=== PATIENT | male | born 1980 | race Caucasian/White ===

== ENCOUNTER 2023-07-10 10:03 | Emergency (ER) | payer OTHER, SELFPAY ==
[2023-07-10 10:23] VITALS: BP 159/124; PULSE 67; RESP 20; TEMP 36.6; O2SAT 96
[2023-07-10 10:26] VITALS: BP 172/135
--- NOTE | 2023-07-10 10:38 | ED.URI ---
HPI - URI/Sore Throat General Chief Complaint: Upper Respiratory Infection Stated Complaint: SOB,chest congestion,not able to sleep Time Seen by Provider: 07/10/23 10:39 Source: patient and RN notes reviewed Mode of arrival: ambulatory Limitations: no limitations History of Present Illness HPI Narrative: 43-year-old male presents with concern of for chest congestion, shortness of breath, and difficulty sleeping. He reports he has been sick for about 2 weeks, he was seen at another urgent care on June 30 and given a Z-Mo and a Medrol Dosepak. He reports he finished his Z-Mo, he took the dose pack for about for 5 days and then stopped it because it was causing him trouble sleeping. He has been off steroids for about 6 days. He reports he is not sleeping, he reports not sleeping for the past 4 days. He describes his shortness of breath as well not being able to complete his normal activities without having to stop to catch his breath, activities that he normally completes without issue. He denies chest pain. He denies fever. MD elicited complaint: other (Shortness of breath, chest congestion) Related Data Home Medications Medication Instructions Recorded Confirmed No Home Medications 07/10/23 07/10/23 Allergies Allergy/AdvReac Type Severity Reaction Status Date / Time No Known Allergies Allergy Verified 07/10/23 10:32 Review of Systems Review of Systems: CONSTITUTIONAL: Denies malaise, chills, sweats, or fever. Reports difficulty sleeping EYES: Denies visual changes, redness, or discharge. ENT: Denies rhinorrhea, congestion, sinus pain, otalgia and sore throat. CARDIOVASCULAR: Denies chest pain, palpitations, or edema. RESPIRATORY: Denies cough. Reports chest congestion. Reports dyspnea. GASTROINTESTINAL: Denies abdominal pain, nausea, vomiting, diarrhea SKIN: Denies rash or itching. MUSCULOSKELETAL: Denies myalgia. NEUROLOGIC: Denies headache. All systems reviewed & are unremarkable except as noted in HPI and below PMFSH Comments At time of signature, agree with nursing past medical, surgical, social and family history. There is no relevant family history pertinent to the presenting complaint Exam Narrative: GENERAL: Well-appearing, well-nourished, and in no acute distress. HEAD: Normocephalic EYES: PERRLA, conjunctivae clear ENT: Nares clear. Mucous membranes moist. TM pearly moya with sharp light reflex bilaterally; no tragal tenderness. Oropharynx mildly erythematous with 1 blood blister noted to the oropharynx. Tonsils not enlarged and without exudate, no drooling, no hoarseness, no trismus, uvula midline. NECK: Supple. No lymphadenopathy CHEST: Clear to auscultation, breath sounds equal. No wheezing, rhonchi, rales, or stridor. No respiratory distress, speaks in full sentences. HEART: Irregular rhythm. No murmur heard. SKIN: Warm, dry, no rash. NEURO: Alert and oriented x3. PSYCH: Normal mood and affect Course Course Emergency Course: Patient is aware of, understands and agrees to be transferred to the emergency room. EMS transfer offered, patient prefers for his girlfriend to drive him. Patient agrees to proceed directly to the emergency department. Portions of this record may have been created with voice recognition software Level of Care: Express Care Visit Vital Signs Vital signs: Vital Signs Temperature 97.9 F 07/10/23 10:23 Pulse Rate 67 07/10/23 10:23 Respiratory Rate 20 07/10/23 10:23 Blood Pressure 159/124 H 07/10/23 10:23 Pulse Oximetry 96 07/10/23 10:23 Oxygen Delivery Room Air 07/10/23 10:23 Temperature 97.9 F 07/10/23 10:23 Pulse Rate 67 07/10/23 10:23 Respiratory Rate 20 07/10/23 10:23 Blood Pressure 172/135 H 07/10/23 10:26 Pulse Oximetry 96 07/10/23 10:23 Oxygen Delivery Room Air 07/10/23 10:23 Reviewed. Transfer Transfered to: [facility]: Other (Private vehicle) Transfer rationale: AFib with RVR Ac
--- NOTE | 2023-07-10 10:47 | ECG_ITS ---
Measurements Intervals [place] Rate: 171 P: RI: 0 QRS: 42 QRSD: 90 T: 63 QT: 276 QTc: 467 Interpretive Statements ATRIAL FIBRILLATION WITH RAPID VENTRICULAR RESPONSE NONSPECIFIC T-WAVE ABNORMALITY ABNORMAL RHYTHM ECG COMPARED TO ECG EARLIER TODAY THERE IS NO DIFFERENCE Electronically Signed On 07-10-2023 19:13:47 BRACER by Cristofer Gibbs M.D.
== END 2023-07-10 11:03 | disposition short-term general hospital (02) ==
PROVIDERS: Emergency Provider Nurse Practitioner
DX: I48.91 Unspecified atrial fibrillation (principal); E78.00 Pure hypercholesterolemia, unspecified; I10 Essential (primary) hypertension
CPT/HCPCS: 93005; 99213; G0463

== ENCOUNTER 2023-07-10 11:21 | Inpatient (IN) | payer OTHER, SELFPAY ==
[2023-07-10] VITALS (22 sets, daily range): BP systolic 111–162; BP diastolic 69–137; PULSE 94–173; RESP 13–25; TEMP 36.4–36.7; O2SAT 94–98; BMI 46.7
--- NOTE | ~2023-07-10 | XR_ITS ---
EXAMINATION: XR chest 1V portable DATE: 07/10/2023 12:21 INDICATION: Shortness of breath and cardiac arrhythmia TECHNIQUE: frontal view of the chest was obtained. COMPARISON: None FINDINGS: Cardiomegaly. Prominent perihilar predominant interstitial and airspace opacities with bat wing confi guration most consistent with moderate pulmonary edema. No pleural effusion or pneumothorax. IMPRESSION: 1. Likely congestive heart failure with mild cardiomegaly and moderate perihilar predominant pulmonar y edema. Differential would include pneumonia in the appropriate clinical setting. Reviewed, dictated and finalized at location A. INTMENT SPECIALIST IMPRESSION: 1. Likely congestive heart failure with mild cardiomegaly and moderate perihila r predominant pulmonary edema. Differential would include pneumonia in the appr opriate clinical setting.
--- NOTE | 2023-07-10 11:28 | ECG_ITS ---
Measurements Intervals [place] Rate: 161 P: [place]: 0 QRS: 41 QRSD: 84 T: 78 QT: 269 QTc: 441 Interpretive Statements ATRIAL FIBRILLATION WITH RAPID VENTRICULAR RESPONSE NONSPECIFIC T-WAVE ABNORMALITY ABNORMAL RHYTHM ECG NO PREVIOUS ECG AVAILABLE FOR COMPARISON Electronically Signed On 07-10-2023 19:13:25 MEDICAL TECHNOLOGIST HEMATOLOGY by Cristofer Gibbs M.D.
[2023-07-10] MEDS: ASPIRIN 81 MG CHEWABLE TABLET 324 MG PO (11:34)
--- NOTE | 2023-07-10 11:36 | ED.ARRPALP ---
HPI - Arrhythmia/Palpitations General Chief Complaint: Arrhythmia/Palpitations Stated Complaint: a fib with rvr/sob Time Seen by Provider: 07/10/23 11:28 History of Present Illness HPI narrative: Patient is a 43-year-old male who presents to the emergency department this morning complaining of shortness of breath. Patient states that he has been having symptoms of an upper respiratory infection with shortness of breath and cough for the past week, he finished a course of antibiotics and steroids which initially improved his symptoms but as soon as he finished the antibiotic and steroids, patient noticed that his shortness of breath has returned. Patient went to an urgent care today and was sent to our facility due to an elevated heart rate. Patient states that he has not noticed that his heart rate has been racing, however, he has been feeling more congested and coughing and having shortness of breath which is what brought him in to the urgent care in the 1st place. He denies any history of cardiovascular disease or arrhythmia, states that his only past medical history is hypertension, however, he took himself off of his blood pressure medications since it was given him side effects that he did not like including seeing floaters. 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 Patient is currently denying chest pain at this time. He denies any nausea, vomiting, abdominal pain, dysuria, hematuria, constipation, diarrhea, melena, hematochezia, fevers or chills. Patient also denies any headache, dizziness, lightheadedness, focal weakness, numbness and tingling. There are no other modifying, alleviating, or precipitating factors at this time. Related Data Home Medications Medication Instructions Recorded Confirmed No Home Medications 07/10/23 07/10/23 Allergies Allergy/AdvReac Type Severity Reaction Status Date / Time No Known Allergies Allergy Verified 07/10/23 10:32 Review of Systems Review of Systems: All systems are reviewed and are negative unless stated otherwise in the HPI. [facility] Past Medical History Medical History (Updated 07/10/23 @ 17:35 by Amber Hopper MD) HTN (hypertension) Social History Social History Alcohol intake: current Drinks per week: 9 Substance use type: marijuana Other substance usage details: smokes 4-5 times a day Do You Feel Safe in your Home?: Yes Lack of Transportation: No Lack of Food: Never True Current Housing: I Have Housing Concerned About Future Housing: No Difficulty Paying Gas/Electric Bills: No Difficulty Paying for Meds: No Currently Unemployed: No Education: Don't Know Difficulty w/ Childcare or Family Care: No Spiritual care concerns: No Comments Patient admits to past medical history of hypertension, however, he states that he took himself off of his blood pressure medication because he did not like how it made him feel. Denies any significant surgical or family history. Patient denies any tobacco use, admits to marijuana use, denies any alcohol abuse. Exam Narrative: General: Alert, awake, afebrile, in no acute distress. HEENT: PERRL, no rhinorrhea, no post nasal drip, oropharynx clear. Neck: Trachea midline, no JVD, no lymphadenopathy. Cardiovascular: Tachycardic with an irregular rhythm, no murmurs, rubs or gallops, no peripheral edema. Respiratory: Clear to auscultation bilaterally, no tachypnea, no wheezing, no rhonchi, no rubs, no respiratory distress. Abdomen: Soft, nontender, nondistended, no rebound, no guarding, no peritoneal signs. Musculoskeletal: No joint swelling or deformity, normal muscle tone. Skin: No rashes or petechia, no signs of infection. Psychiatric: Alert and oriented, normal behavior and judgment for situation. Neuro
[2023-07-10 11:53] LABS: Basophils Absolute Auto 0.1 K/mm3 (0.0-0.1); Basophils Percent Auto 0.5 % (0.2-1.2); Eosinophils Absolute Auto 0.1 K/mm3 (0-0.3); Eosinophils Percent Auto 1.3 % (0-4.4); Hematocrit 44.6 % (42.0-52.0); Hemoglobin 14.2 g/dL (14.0-18.0); Immature Granulocyte Absolute 0.04 K/mm3 (0.00-0.031); Immature Granulocyte Percent A 0.4 % (0-0.5); Lymphocytes Absolute Auto 2.15 K/mm3 (0.9-3.2); Lymphocytes Percent Auto 20.2 % (18.3-44.2); Mean Corpuscular HGB Conc 31.8 g/dl (32-36); Mean Corpuscular Hemoglobin 30.3 pg (26-34); Mean Corpuscular Volume 95.3 fl (80-100); Mean Platelet Volume 8.6 fl (7.4-10.4); Monocytes Absolute Auto 0.8 K/mm3 (0.1-0.6); Monocytes Percent Auto 7.6 % (2.6-8.5); Neutrophils Absolute Auto 7.4 K/mm3 (1.3-6.7); Platelet Count Result 426 k/mm3 (150-375); Red Blood Count 4.68 M/mm3 (4.6-6.20); Red Cell Distribution Width 13.8 % (11.5-14.5); White Blood Count 10.6 K/mm3 (4.5-10.0)
[2023-07-10 12:02] LABS: Alanine Aminotransferase 74 U/L (6-50); Albumin Level 3.9 g/dL (3.5-5.1); Alkaline Phosphatase 45 U/L (38-126); Anion Gap 5 mmol/L (8-16); Aspartate Amino Transferase 42 U/L (17-59); Bilirubin,Total 0.6 mg/dL (0.2-1.3); Blood Urea Nitrogen 21 mg/dL (9-20); Calcium 9.1 mg/dL (8.4-10.2); Carbon Dioxide 28 mmol/L (22-30); Chloride 105 mmol/L (98-107); Estimated CRCL calculation 113 ml/min; Estimated Glomerular Filt Rate > 60; Glucose 114 mg/dL (65-110); Lipase 109 U/L (23-300); Sodium 138 mmol/L (137-145)
[2023-07-10 12:04] LABS: INR 1.1; Partial Thromboplastin Time 28.5 SECONDS (22.3-36.8); Prothrombin Time 14.5 Seconds (11.1-14.7)
[2023-07-10] MEDS: SODIUM CHLORIDE 0.9% IV 1,000 ML 999 ML IV CONT (12:04)
[2023-07-10] MEDS: dilTIAZem HCl INJ 25 MG/5 ML VIAL 10 MG IV PUSH (12:05)
[2023-07-10] MEDS: dilTIAZem 100 MG/100 ML 100 MG/100 ML BAG IV CONT (12:06)
[2023-07-10 12:13] LABS: Troponin I 0.034 ng/mL (0.000-0.034)
[2023-07-10 12:28] LABS: Influenza A QL RT-PCR Negative (Negative); Influenza B QL RT-PCR Negative (Negative); RSV RNA, RT-PCR Negative (Negative); SARS-CoV-2 RNA PCR Negative (Negative)
[2023-07-10 12:43] LABS: Appearance Urine Clear (Clear); Bilirubin Urine Negative (Negative); Blood Urine Negative (Negative); Color Urine Yellow (Yellow); Glucose Urine UA Negative (Negative); Ketones Urine Negative (Negative); Leukocyte Esterase Ur Negative LEU/UL (Negative); Nitrate Urine Negative (Negative); Protein Urine Negative (Negative); Specific Grav Ur 1.022 (1.001-1.035); Urobilinogen Urine 0.2 mg/dL (<2.0)
[2023-07-10] MEDS: dilTIAZem HCl INJ 25 MG/5 ML VIAL 20 MG IV PUSH ×2 (12:48→14:44)
[2023-07-10 12:56] LABS: Add Urine Microscopic? NO
[2023-07-10 13:29] LABS: Magnesium 2.4 mg/dL (1.6-2.3)
--- NOTE | 2023-07-10 13:32 | PM.IMHP ---
H&P: HPI History of Present Illness Date/Time: 07/10/23 13:32 Chief Complaint: SOB, Chest Congestion Narrative: 43 y/o M presents here with shortness of breath and chest congestion with PMH of HTN. Patient presents here with SOB, tachycardia, chest congestion, and insomnia that has been ongoing. Patient first noted SOB and productive cough for 1-2 days prior to being seen on 06/29. Patient was negative for COVID and Flu - no CXR done, dx with URI. Given atb x5 days and steroid x7 days, completed atb but has not completed the steroid course. Patient self-discontinued the steroid due to insomnia - described being jolted awake every hour. Patient's SOB slightly improved initially, but chest congestion did not improve despite Robitussin. SOB then worsened again. Girlfriend noted patient was gasping and very short of breath over the last 2-3 days. Was requiring rest/bracing himself against the wall to catch his breath. Exertion worsened SOB, rest would alleviate it but it never completely resolved. No chest pain, chest tightness, dizziness, jaw pain, or fatigue. +diaphoresis and clamminess not associated with exertion, intermittent without precipitating factors. +Palpitations. Afebrile and no body aches. Patient has HTN but not currently on medications. Patient states that 2 years ago he was exchanged to a different HTN medications and he started seeing tracers . Does not remember names of medications. 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 Initial VS at presentation: 98.0 F, HR 67-173, RR 20, 158/137, and 96% on RA. ED workup showed no leukocytosis, no anemia, creatinine 1.1, magnesium 2.4, ALT 74, BNP 4 270, troponin initially 0.034, and viral PCR negative. CXR: Cardiomegaly. Prominent perihilar predominant interstitial and airspace opacities with bat wing configuration most consistent with moderate pulmonary edema. No pleural effusion or pneumothorax. Review of Systems Review of Systems: All systems reviewed & are unremarkable except as noted in HPI and below PMFSH Past Medical History Medical History (Updated 07/10/23 @ 13:58 by Meaghan Rojas, AIRCRAFT SERVICER) HTN (hypertension) Meds Home Medications and Allergies Home Medications Medication Instructions Recorded Confirmed Type No Home Medications 07/10/23 07/10/23 History Allergies Allergy/AdvReac Type Severity Reaction Status Date / Time No Known Allergies Allergy Verified 07/10/23 10:32 Vital Signs Vital Signs - 24 hr 07/10/23 11:36 07/10/23 11:48 07/10/23 11:48 Temperature 98.0 F Pulse Rate 173 H 162 H 170 H Respiratory Rate 20 17 Blood Pressure 158/137 H 155/122 H Pulse Oximetry 96 95 Oxygen Delivery Room Air 07/10/23 12:06 07/10/23 12:48 07/10/23 12:55 Temperature Pulse Rate 169 H 157 H 124 H Respiratory Rate 13 Blood Pressure 137/102 H 150/80 H Pulse Oximetry 96 95 Oxygen Delivery 07/10/23 13:00 Temperature Pulse Rate 136 H Respiratory Rate 13 Blood Pressure Pulse Oximetry 95 Oxygen Delivery Exam Const: General: comfortable and no acute distress Other: , male, nontoxic appearance, obese body habitus. HENMT: Face/Nose/Sinus: Normal nares present Mouth: Yes moist mucous membranes Eyes: General: appearance normal, both eyes and all related structures Sclera: sclerae normal Pupils: Equal, round and reactive pupils present EOM: EOMs intact bilaterally Resp: Effort & Inspection: normal respiratory effort Auscultation: rhonchi Other: L lung base. Cardio: Rate: tachycardic Rhythm: abnormal rhythm Other: No murmur. GI: Other: rounded, non-firm, and non-tender Skin: General skin exam: normal color Other: satellite dispersion rash across upper chest. Neuro: General: gait normal Speech: normal speech Motor exam (neuro): 5/5 motor strength present throughout Sensory Exam: normal sensation Other: A/Ox4 Extrem: General: norm
[2023-07-10 13:42] LABS: NT Pro B Type Natriuretic Pept 4270 pg/mL (19.9-100)
[2023-07-10 13:47] LABS: Lactic Acid Reflex 1.1 mmol/L (0.7-2.0)
[2023-07-10] MEDS: AZITHROMYCIN 500 MG/NS 250 ML 500 MG/250 ML BAG 250 MG IVPB (14:51)
--- NOTE | 2023-07-10 15:43 | ECG_ITS ---
Measurements Intervals [place] Rate: 114 P: [place]: 0 QRS: 47 QRSD: 93 T: 63 QT: 336 QTc: 464 Interpretive Statements ATRIAL FIBRILLATION WITH RAPID VENTRICULAR RESPONSE ABNORMAL ECG COMPARED TO ECG 07/10/2023 11:32:09 NO SIGNIFICANT CHANGES Electronically Signed On 07-12-2023 18:18:35 FEDERAL AGENT by Ronaldo Mtz M.D.
[2023-07-10 16:30] LABS: Troponin I 0.027 ng/mL (0.000-0.034)
[2023-07-10] MEDS: FUROSEMIDE INJ 40 MG/4 ML VIAL IV PUSH (17:10)
[2023-07-10] MEDS: LACTATED RINGERS 500 ML 75 ML IV CONT (17:10)
--- NOTE | 2023-07-10 17:22 | ADMGEN ---
This patient, Salvador Nolan, was admitted to IMU Room 205-01. Patient/family oriented to hospital policies and general routines including ID bracelet, bed and alarms, visiting hours, pain management, procedures, bathroom and other care routines, personal items, smoking policy, room service/diet, and visiting hours. Information on how to activate the Rapid Response Team has been discussed. Patient/Family are encouraged to report perceived risks to care and to ask questions if they do not understand what they are told or what they should do.
[2023-07-10 17:54] LABS: Troponin I 0.023 ng/mL (0.000-0.034)
--- NOTE | 2023-07-10 17:54 | PM.CNCAR ---
Assessment and Plan Assessment and plan (1) Atrial fibrillation with rapid ventricular response: Code(s): I48.91 - Unspecified atrial fibrillation Status: Acute Plan This is a young 43-year-old man morbid obesity and untreated hypertension he is is also reporting symptoms that are classical for sleep apnea. This has not been reported to physician or evaluated. He recently has had symptoms of an upper respiratory illness. He is receiving intravenous diltiazem with some improvement in heart rate but he is still moderately tachycardic and hypertensive. I am going to add metoprolol to his regimen as this would be my rate control agent of preference in this situation. I will start systemic anticoagulation with apixaban recognizing that his chads score is low but if we are anticipating that the likelihood of trying to cardiovert this young man I would like him to be anticoagulated at least for the time being. Echocardiogram will of course be done I will order an ApneaLink for tonight and follow with you while he is in the hospital. If we can achieve good rate control and anticoagulation which generally anticipate attempting cardioversion after suitable anticoagulation for 4-6 weeks. Thank you for this interesting consultation Cristofer Gibbs MD [facility] History of Present Illness History of Present Illness Consult date/time: 07/10/23 17:54 Reason For Visit: A FIB RVR,Pneumonia vs Pulmonary Edema Narrative: This is a very pleasant 43-year-old man I am seeing at the request of the hospitalist his evening for assistance with the management of atrial fibrillation. The patient is unknown to me and I believe unknown to physicians here at [facility] prior to this admission. He says he had been feeling poorly for a couple of weeks and was concerned that he have a viral respiratory illness. He describes having gone to an urgent care facility elsewhere and received some antibiotics and decongestants for the last week or so. He states his breathing felt somewhat better but he was still congested and not feeling well and so he went to the [place] urgent care center earlier today. He was found to be quite a quite tachycardic cardiac and in atrial fib with RVR. He was sent to the emergency room for evaluation where he was placed on IV diltiazem and admitted to the IMU. He appears to be quite comfortable at this time and seems to be in no distress at all. He is visiting with his in and due to see him. He is interestingly not aware of tachycardia or palpitations as part of this presentation. He has a history of hypertension which is untreated as he has not been on any medication for least a few years. He is previous primary care physician had him on medication which she self discontinued. He does not have any history of diabetes or dyslipidemia. He is morbidly obese with a BMI of 47. His provides a very typical history of symptoms and observations of sleep apnea. She states this is been going on for at least a few years. He has 5 mg of IV diltiazem running at this time and has heart rate of about 120-130. Review of Systems Constitutional: Constitutional: Reports lethargy Eyes: Eyes: Reports no additional eye complaints ENT: Reports system reviewed and no additional complaints, except as documented Cardiovascular: Cardiovascular: Reports no additional cardiovascular complaints Respiratory: Respiratory: Reports cough and Reports dyspnea Gastrointestinal: Gastrointestinal: Reports no additional gastrointestinal complaints Musculoskeletal: Musculoskeletal: Reports no additional musculoskeletal complaints Integumentary/Breasts: Skin/Breast: Reports system reviewed and no additional complaints, except as docu Neurologic: Reports system reviewed and no additional complaints, except as documented Endocrine: Endocrine: Reports no additional endocrine complaints Hematologic/Lymphatic: Hematologic/Lymphatic: Reports
[2023-07-10] MEDS: METOPROLOL SUCCINATE EXT REL 100 MG TABCR PO (18:38)
[2023-07-10] MEDS: dilTIAZem 100 MG/100 ML 100 MG/100 ML BAG 10 MG IV CONT ×2 (19:27→22:03)
[2023-07-10] MEDS: APIXABAN 5 MG TABLET PO (20:55)
[2023-07-11] VITALS (20 sets, daily range): BP systolic 127–149; BP diastolic 92–99; PULSE 84–108; RESP 18–25; TEMP 36.2–36.8; O2SAT 90–97
[2023-07-11] MEDS: METOPROLOL SUCCINATE EXT REL 100 MG TABCR PO (09:01)
[2023-07-11] MEDS: dilTIAZem 100 MG/100 ML 100 MG/100 ML BAG 10 MG IV CONT (09:01)
[2023-07-11] MEDS: APIXABAN 5 MG TABLET PO ×2 (09:02→20:09)
--- NOTE | 2023-07-11 10:52 | PM.PNCARD ---
Progress Note: A&P Assessment and Plan (1) Atrial fibrillation with rapid ventricular response: Code(s): I48.91 - Unspecified atrial fibrillation Status: Acute Plan 43-year-old man with: Atrial fib with RVR felt to be of recent onset possibly 2-3 weeks prior to admission. Heart rate is coming under good control medically and he is anticoagulated. Start down titrating his IV diltiazem hopefully the oral metoprolol will provide adequate rate control and when his heart rate is controlled with oral medication and assuming he is hemodynamically stable he can be discharged with plans to attempt cardioversion as an outpatient. Apnea link was done last night results of that are pending. He reports classical symptoms of obstructive sleep apnea. Echocardiogram will be done tomorrow for structural cardiac evaluation. Cristofer Gibbs MD [facility] Subjective Date/time seen: Date of service: 07/11/23 10:52 Interval history: Follow-up visit in this 43-year-old man with: Atrial fibrillation with RVR of uncertain duration. Patient's heart rate is well controlled on IV diltiazem oral metoprolol started yesterday. Apixaban in place for systemic anticoagulation. He feels well this more and offers no symptoms or complaints. Plans reviewed again for initial rate control and subsequent attempts at restoring sinus rhythm once he has been anticoagulated for 4-6 weeks. Exam Const: General: comfortable and no acute distress HENMT: Mouth: Yes moist mucous membranes Eyes: Sclera: sclerae normal Neck: Neck: supple and no JVD Resp: Effort & Inspection: normal respiratory effort Auscultation: clear to auscultation bilaterally Other: Breath sounds distant but essentially clear Cardio: Rate: regular rate Rhythm: abnormal rhythm irregularly irregular GI: GI Palp: Yes Soft to palpation Auscultation: normal bowel sounds Skin: General skin exam: normal color Neuro: Other: Alert and oriented x3 Objective Data Vital Signs Vital Signs: Vital Signs - 24 hr 07/10/23 11:36 07/10/23 11:48 07/10/23 11:48 Temperature 36.7 C Pulse Rate 173 H 162 H 170 H Respiratory Rate 20 17 Blood Pressure 158/137 H 155/122 H Pulse Oximetry 96 95 Oxygen Delivery Room Air 07/10/23 12:06 07/10/23 13:49 07/10/23 14:12 Temperature Pulse Rate 169 H 135 H 138 H Respiratory Rate 20 Blood Pressure 137/102 H 158/110 H Pulse Oximetry 95 Oxygen Delivery 07/10/23 12:48 07/10/23 12:55 07/10/23 13:00 Temperature Pulse Rate 157 H 124 H 136 H Respiratory Rate 13 13 Blood Pressure 150/80 H Pulse Oximetry 96 95 95 Oxygen Delivery 07/10/23 13:37 07/10/23 13:45 07/10/23 14:32 Temperature Pulse Rate 137 H 135 H 134 H Respiratory Rate 22 H 22 H 23 H Blood Pressure Pulse Oximetry 96 94 95 Oxygen Delivery 07/10/23 14:45 07/10/23 14:46 07/10/23 15:16 Temperature Pulse Rate 144 H 138 H 118 H Respiratory Rate 23 H 22 H 25 H Blood Pressure 162/118 H 133/106 H Pulse Oximetry 98 Oxygen Delivery 07/10/23 18:38 07/10/23 19:27 07/10/23 18:00 Temperature Pulse Rate 123 H 123 H 104 H Respiratory Rate Blood Pressure Pulse Oximetry Oxygen Delivery 07/10/23 20:00 07/10/23 22:03 07/10/23 21:00 Temperature 36.4 C L Pulse Rate 108 H 101 H Respiratory Rate 25 H Blood Pressure 111/69 Pulse Oximetry 95 Oxygen Delivery Room Air 07/10/23 23:01 07/10/23 23:00 07/10/23 20:00 Temperature 36.6 C Pulse Rate 102 H 94 Respiratory Rate 25 H Blood Pressure 135/99 H Pulse Oximetry 95 Oxygen Delivery Room Air 07/10/23 22:00 07/11/23 00:00 07/11/23 02:00 Temperature Pulse Rate 103 H 84 96 Respiratory Rate Blood Pressure Pulse Oximetry Oxygen Delivery 07/11/23 00:00 07/11/23 03:51 07/11/23 03:54 Temperature 36.7 C Pulse Rate 95 Respiratory Rate 25 H Blood Pressure 135/99 H 134/99 H Pulse Oximetry 96 O
--- NOTE | 2023-07-11 14:25 | PM.IMPN ---
Progress Note: A&P Assessment and Plan (1) Atrial fibrillation with rapid ventricular response: Code(s): I48.91 - Unspecified atrial fibrillation Status: Acute Assessment and Plan: EKG showing A-fib RVR - Troponin: 0.034 -> 0.027, 0.023 - CXR: Likely congestive heart failure with mild cardiomegaly and moderate perihilar predominant pulmonary edema. - BNP: 4270 - echo ordered. - cardiology consulted. - tele monitoring - diltiazem gtt titrate down - pt transitioned to metoprolol succinate 100 mg daily (2) Pneumonia: Code(s): J18.9 - Pneumonia, unspecified organism Status: Acute Assessment and Plan: CXR: Likely congestive heart failure with mild cardiomegaly and moderate perihilar predominant pulmonary edema. Differential would include pneumonia in the appropriate clinical setting. - given complaint of chest congestion, treatment for CAP started - Azithromycin and Ceftriaxone - viral PCR negative - supportive care - monitor vitals, currently afebrile (3) Pulmonary edema: Code(s): J81.1 - Chronic pulmonary edema Status: Acute Assessment and Plan: CXR: Likely congestive heart failure with mild cardiomegaly and moderate perihilar predominant pulmonary edema. Differential would include pneumonia in the appropriate clinical setting. - BNP: 4270 - Lasix 40 IVP x1 - monitor I&Os - daily weights - echo ordered Subjective Date/time seen: 07/11/23 14:25 Interval history: Patient doing well today and states he feels better today. Patient States that he needs to be discharged by tomorrow due to work conflicts. He denies any chest pain, heart palpitations, sensation of racing heart, lower extremity edema, nausea vomiting. He was experiencing some shortness of breath but that has since improved. Will plan to get echocardiogram tomorrow. Heart rate improved today. Exam Narrative: GENERAL: Comfortable, no acute distress HENMT: moist mucous membranes EYES: EOM intact b/l NECK: no lymphadenopathy RESPIRATORY: clear to auscultation CARDIO: Irregular rhythm, rate controlled GI: soft, nontender, bowel sounds present SKIN: no rashes EXTREMITIES: no edema, redness or tenderness Objective Data Vital Signs Vital Signs: Vital Signs - 24 hr 07/10/23 14:32 07/10/23 14:45 07/10/23 14:46 Temperature Pulse Rate 134 H 144 H 138 H Respiratory Rate 23 H 23 H 22 H Blood Pressure 162/118 H Pulse Oximetry 95 Oxygen Delivery 07/10/23 15:16 07/10/23 18:38 07/10/23 19:27 Temperature Pulse Rate 118 H 123 H 123 H Respiratory Rate 25 H Blood Pressure 133/106 H Pulse Oximetry 98 Oxygen Delivery 07/10/23 18:00 07/10/23 20:00 07/10/23 22:03 Temperature 97.5 F L Pulse Rate 104 H 108 H 101 H Respiratory Rate 25 H Blood Pressure 111/69 Pulse Oximetry 95 Oxygen Delivery 07/10/23 21:00 07/10/23 23:01 07/10/23 23:00 Temperature 97.9 F Pulse Rate 102 H Respiratory Rate 25 H Blood Pressure 135/99 H Pulse Oximetry 95 Oxygen Delivery Room Air Room Air 07/10/23 20:00 07/10/23 22:00 07/11/23 00:00 Temperature Pulse Rate 94 103 H 84 Respiratory Rate Blood Pressure Pulse Oximetry Oxygen Delivery 07/11/23 02:00 07/11/23 00:00 07/11/23 03:51 Temperature Pulse Rate 96 Respiratory Rate Blood Pressure 135/99 H Pulse Oximetry Oxygen Delivery Room Air 07/11/23 03:54 07/10/23 23:00 07/11/23 04:00 Temperature 98.1 F Pulse Rate 95 106 H Respiratory Rate 25 H Blood Pressure 134/99 H Pulse Oximetry 96 96 Oxygen Delivery Room Air 07/11/23 06:00 07/11/23 07:55 07/11/23 08:03 Temperature 97.7 F Pulse Rate 103 H 104 H 107 H Respiratory Rate 19 Blood Pressure 132/98 H Pulse Oximetry 94 Oxygen Delivery 07/11/23 09:01 07/11/23 08:00 07/11/23 10:00 Temperature Pulse Rate 102 H 97 96 Respiratory Rate Blood Pressure Pulse Oximet
[2023-07-11] MEDS: AZITHROMYCIN 250 MG TABLET 500 MG PO (16:04)
[2023-07-12] VITALS (21 sets, daily range): BP systolic 117–155; BP diastolic 76–102; PULSE 59–142; RESP 18–20; TEMP 35.9–37; O2SAT 95–97
--- NOTE | 2023-07-12 | ECHO_ITS ---
Patient Info Name: Salvador Nolan Age: 43 years : 1980 Gender: Male Ht: 70 in Wt: 327 lbs BSA: 2.78 m2 HR: 139 bpm BP: 136 / 76 mmHg Heart Rhythm: Atrial Fibrillation Technical Quality: Fair Exam Date: 07/12/2023 8:16 AM Exam Location: Echo Lab Patient Status: Inpatient Admit Date: 07/11/2023 Staff Ordering Physician: Meaghan Rojas APRN Horse Buyer: Kaylyn Bro RDCS Attending Provider: Sunil Amaya MD Referring Physician: Bob RICHARD; Exam Type: CA echo dop color flow w con Study Info Indications - NEW AFIB Complete two-dimensional, color flow and Doppler transthoracic echocardiogram is performed with contrast to opacify the left ventricle and to improve the deliniation of the left ventricle endocardial borders. Contrast/Agitated Saline Contrast/Ag. Saline: Definity Amount: 3.00 ml Administered By: Kaylyn Bro RDCS Existing IV Access: Yes IV Access Condition: patent with no signs of infiltration Summary 1. Technically difficult study with limited views. Definity contrast administered. 2. Left ventricular chamber dimension is normal. 3. Left ventricular systolic function is normal, estimated at 55-60%. 4. There is no increased left ventricular wall thickness. 5. The left ventricular diastolic function is indeterminate. 6. Left atrial chamber dimension is mildly enlarged. 7. Right atrial chamber dimension is severely enlarged. 8. There is trace tricuspid valve regurgitation. 9. Mild pulmonary hypertension, estimated pulmonary arterial systolic pressure is 38 mmHg. 10. Dilated inferior vena cava with >50% collapse upon inspiration consistent with elevated right atrial pressure, 10 mmHg. Left Ventricle Left ventricular chamber dimension is normal. Left ventricular systolic function is normal, estimated at 55-60%. There is no increased left ventricular wall thickness. The left ventricular diastolic function is indeterminate. Technically difficult study with limited views. Definity contrast administered. Right Ventricle Right ventricular chamber dimension is normal. Right ventricular systolic function is normal. Left Atria Left atrial chamber dimension is mildly enlarged. Right Atria Right atrial chamber dimension is severely enlarged. Aortic Valve The aortic valve is trileaflet. There is no aortic valve stenosis. There is no aortic valve regurgitation. Pulmonic Valve The pulmonic valve is not well visualized. Mitral Valve The mitral valve has normal leaflets. There is mild mitral valve regurgitation. Tricuspid Valve The tricuspid valve leaflets are normal. There is trace tricuspid valve regurgitation. Mild pulmonary hypertension, estimated pulmonary arterial systolic pressure is 38 mmHg. Pericardium/Pleural The pericardium appears normal. There is no pericardial effusion. Inferior Vena Cava Dilated inferior vena cava with >50% collapse upon inspiration consistent with elevated right atrial pressure, 10 mmHg. Aorta The aortic root size at the sinus of Valsalva is normal. Left Ventricular Outflow Tract Name Value Normal LVOT 2D LVOT Diameter 2.04 cm LVOT Doppler LVOT Peak Gradient
[2023-07-12] MEDS: dilTIAZem 100 MG/100 ML 100 MG/100 ML BAG IV CONT (00:50)
[2023-07-12 04:42] LABS: Hemoglobin 13.4 g/dL (14.0-18.0); Mean Corpuscular HGB Conc 31.9 g/dl (32-36); Mean Corpuscular Hemoglobin 30.3 pg (26-34); Mean Platelet Volume 8.7 fl (7.4-10.4); Platelet Count Result 388 k/mm3 (150-375); Red Blood Count 4.42 M/mm3 (4.6-6.20); Red Cell Distribution Width 13.5 % (11.5-14.5); White Blood Count 10.6 K/mm3 (4.5-10.0)
[2023-07-12 05:13] LABS: Anion Gap 5 mmol/L (8-16); Blood Urea Nitrogen 14 mg/dL (9-20); Calcium 8.5 mg/dL (8.4-10.2); Carbon Dioxide 26 mmol/L (22-30); Chloride 105 mmol/L (98-107); Estimated CRCL calculation 136 ml/min; Estimated Glomerular Filt Rate > 60; Glucose 99 mg/dL (65-110); Potassium 3.8 mmol/L (3.4-5.0); Sodium 136 mmol/L (137-145)
[2023-07-12] MEDS: PERFLUTREN LIPID MICROSPHERES 1.5 ML VIAL DILUTED TO 10 ML TOTAL VOLUME IV PUSH (08:46)
--- NOTE | 2023-07-12 09:01 | PC.NURSE ---
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
[2023-07-12] MEDS: METOPROLOL SUCCINATE EXT REL 100 MG TABCR PO (09:34)
[2023-07-12] MEDS: APIXABAN 5 MG TABLET PO ×2 (09:35→20:23)
[2023-07-12] MEDS: AZITHROMYCIN 250 MG TABLET 500 MG PO (11:23)
[2023-07-12] MEDS: dilTIAZem HCL 60 MG TABLET PO ×2 (11:23→19:38)
[2023-07-12] MEDS: METOPROLOL SUCCINATE EXT REL 50 MG TABCR PO (11:23)
--- NOTE | 2023-07-12 11:40 | IVDEFINITY ---
Prior to administration of IV Definity the patient was educated on the risks and benefits of the imaging enhancing agent including potential adverse side effects. The patient verbalized understanding. Allergies were verified. No exclusion criteria were identified and at least one of the following inclusion criteria were met: 1) physician request, 2) patient technically difficult to image (per the [place] [employer]ocardi[employer] guidelines of two or more segments not discernable within the apical view), or 3) questionable left ventricular function. ?
--- NOTE | 2023-07-12 14:24 | PM.IMPN ---
Progress Note: A&P Assessment and Plan (1) Atrial fibrillation with rapid ventricular response: Code(s): I48.91 - Unspecified atrial fibrillation Status: Acute Assessment and Plan: EKG showing A-fib RVR - Troponin: 0.034, 0.027, 0.023 - CXR: Likely congestive heart failure with mild cardiomegaly and moderate perihilar predominant pulmonary edema. - BNP: 4270 - echo pending. - cardiology consulted. - tele monitoring - diltiazem gtt titrate down - pt transitioned to metoprolol succinate 100 mg daily - 07/12 patient not yet converted. Await further recommendations from cardiology (2) Pneumonia: Code(s): J18.9 - Pneumonia, unspecified organism Status: Acute Assessment and Plan: CXR: Likely congestive heart failure with mild cardiomegaly and moderate perihilar predominant pulmonary edema. Differential would include pneumonia in the appropriate clinical setting. - given complaint of chest congestion, treatment for CAP started - Azithromycin and Ceftriaxone - viral PCR negative - supportive care - monitor vitals, currently afebrile (3) Pulmonary edema: Code(s): J81.1 - Chronic pulmonary edema Status: Acute Assessment and Plan: CXR: Likely congestive heart failure with mild cardiomegaly and moderate perihilar predominant pulmonary edema. Differential would include pneumonia in the appropriate clinical setting. - BNP: 4270 - Lasix 40 IVP x1 - monitor I&Os - daily weights - echo pending (4) HTN (hypertension): Code(s): I10 - Essential (primary) hypertension Status: Acute Assessment and Plan: Patient consistently with elevated blood pressure greater with systolic BP greater than 140. Will start patient on 5 mg of amlodipine. Patient states that he does now he had elevated blood pressure. Subjective Date/time seen: 07/12/23 14:24 Interval history: Patient continues to have elevated heart rate. He states that he does have feelings of racing heart but denies any palpitations, chest pain or shortness of breath. He is still on diltiazem drip as well as metoprolol. Awaiting further recommendations from Cardiology. Echocardiogram pending Exam Narrative: GENERAL: Comfortable, no acute distress HENMT: moist mucous membranes EYES: EOM intact b/l NECK: no lymphadenopathy RESPIRATORY: clear to auscultation CARDIO: Irregular rhythm, irregular rate GI: soft, nontender, bowel sounds present SKIN: no rashes EXTREMITIES: no edema, redness or tenderness Objective Data Vital Signs Vital Signs: Vital Signs - 24 hr 07/11/23 16:00 07/11/23 16:00 07/11/23 16:00 Temperature 98.2 F Pulse Rate 103 H 99 Respiratory Rate 18 Blood Pressure 130/92 H Pulse Oximetry 97 Oxygen Delivery Room Air 07/11/23 18:00 07/11/23 20:36 07/11/23 20:00 Temperature 97.1 F L Pulse Rate 105 H 107 H Respiratory Rate 18 Blood Pressure 141/97 H Pulse Oximetry 90 Oxygen Delivery Room Air 07/11/23 20:00 07/11/23 22:00 07/11/23 23:45 Temperature Pulse Rate 108 H 100 Respiratory Rate Blood Pressure Pulse Oximetry Oxygen Delivery Room Air 07/11/23 23:58 07/12/23 00:00 07/12/23 00:50 Temperature 97.2 F L Pulse Rate 105 H 92 113 H Respiratory Rate 18 Blood Pressure 149/98 H Pulse Oximetry 95 Oxygen Delivery 07/12/23 02:00 07/12/23 04:00 07/12/23 04:00 Temperature Pulse Rate 122 H 129 H Respiratory Rate Blood Pressure Pulse Oximetry Oxygen Delivery Room Air 07/12/23 05:04 07/12/23 05:47 07/12/23 05:53 Temperature 96.7 F L Pulse Rate 129 H 134 H 84 Respiratory Rate 18 Blood Pressure 136/76 Pulse Oximetry 95 Oxygen Delivery 07/12/23 07:27 07/12/23 09:34 07/12/23 08:00 Temperature 98.6 F Pulse Rate 125 H 137 H 142 H Respiratory Rate 18 Blood Pressure 151/102 H Pulse Oximetry 96 Oxygen Delivery 07/12/23 08:0
--- NOTE | 2023-07-12 17:57 | PM.PNCARD ---
Progress Note: A&P Assessment and Plan (1) Atrial fibrillation with rapid ventricular response: Code(s): I48.91 - Unspecified atrial fibrillation Status: Acute Assessment and Plan: Persistent atrial fibrillation with RVR despite medical therapy. Increase Toprol XL to 150 mg daily. Given additional 50 mg p.o. x1 over this afternoon. Discontinue IV diltiazem in favor of oral diltiazem 60 mg p.o. q.6 hours. Anticipate transition to diltiazem 240 mg daily beginning tomorrow morning if patient remains hospitalized overnight. Due to monitor for symptomatic bradycardia. We need adequate heart rate control prior to discharge. We discussed ADRIANNA guided cardioversion. Patient states he cannot wait for this to be performed and as he had already eaten breakfast was not a candidate in that regard. Nonetheless he would require Anesthesiology support for ADRIANNA guided cardioversion. Continue systemic anticoagulation with Eliquis 5 mg twice daily. Monitor for bleeding. Ambulate with caution to avoid risk for falls and bleeds. If bleeding, falls or head injury ER immediately. Continue telemetry overnight with monitor heart rate control and tolerance of adjustments of medical therapy as above. (2) HTN (hypertension): Code(s): I10 - Essential (primary) hypertension Status: Acute Assessment and Plan: BP elevated, fair overall. As above, increase Toprol-XL and diltiazem. Monitor BP tolerance. (3) Morbid obesity with BMI of 45.0-49.9, adult: Code(s): E66.01 - Morbid (severe) obesity due to excess calories; Z68.42 - Body mass index [BMI] 45.0-49.9, adult Status: Acute Assessment and Plan: Lifestyle modification counseling, weight loss, exercise. (4) KARTHIKEYAN (obstructive sleep apnea): Code(s): G47.33 - Obstructive sleep apnea (adult) (pediatric) Status: Acute Assessment and Plan: Evaluation for sleep apnea as an outpatient. AHI 10 on apnea link suggestive of clinically significant obstructive sleep apnea. (5) Pneumonia: Code(s): J18.9 - Pneumonia, unspecified organism Status: Acute Assessment and Plan: Management per primary service. Transition to oral antibiotics when appropriate. Subjective Date/time seen: Date of service: 07/12/23 17:57 Interval history: Follow-up visit in this 43-year-old man with: He remains in atrial fibrillation with RVR. He is asymptomatic. No chest pain, palpitations, dizziness. Patient states he needs to be discharged to the he may return to work tomorrow afternoon by 5:00 p.m. or he will lose his job. He states otherwise he will need to leave against medical advice. Review of Systems Constitutional: Constitutional: Reports lethargy Eyes: Eyes: Reports no additional eye complaints ENT: Reports system reviewed and no additional complaints, except as documented Cardiovascular: Cardiovascular: Reports no additional cardiovascular complaints and Reports dyspnea Respiratory: Respiratory: Reports cough and Reports dyspnea Gastrointestinal: Gastrointestinal: Reports no additional gastrointestinal complaints Musculoskeletal: Musculoskeletal: Reports no additional musculoskeletal complaints Integumentary/Breasts: Skin/Breast: Reports system reviewed and no additional complaints, except as docu Neurologic: Reports system reviewed and no additional complaints, except as documented Endocrine: Endocrine: Reports no additional endocrine complaints Hematologic/Lymphatic: Hematologic/Lymphatic: Reports no additional hematologic/lymphatic complaints Allergic/Immunologic: Allergic/Immunologic: Reports no additional allergic/immunologic complaints Exam Const: General: comfortable and no acute distress Other: Pleasant morbidly obese man offering no complaints at this time IV diltiazem running as mentioned above HENMT: Mouth: Yes moist mucous membranes Eyes: Sclera: sclerae normal Neck: Neck: supple and no JVD Othe
[2023-07-13] VITALS (12 sets, daily range): BP systolic 117–137; BP diastolic 77–92; PULSE 82–119; RESP 18–20; TEMP 36.4–36.9; O2SAT 96–98
[2023-07-13] MEDS: dilTIAZem HCL 60 MG TABLET PO ×2 (00:59→05:55)
[2023-07-13] MEDS: APIXABAN 5 MG TABLET PO (09:40)
[2023-07-13] MEDS: dilTIAZem HCL CD 240 MG CAP.24HR PO (09:40)
[2023-07-13] MEDS: METOPROLOL SUCCINATE EXT REL 50 MG TABCR 150 MG PO (09:40)
[2023-07-13] MEDS: AZITHROMYCIN 250 MG TABLET 500 MG PO (12:08)
--- NOTE | 2023-07-13 14:38 | PM.DS ---
DS: Admitting Diagnosis Discharge Date 07/13/23 Admitting Diagnosis AFib RVR, pneumonia DS: Discharge Diagnosis Discharge Diagnosis (1) Atrial fibrillation with rapid ventricular response: Code(s): I48.91 - Unspecified atrial fibrillation Status: Acute (2) Pneumonia: Code(s): J18.9 - Pneumonia, unspecified organism Status: Acute (3) Pulmonary edema: Code(s): J81.1 - Chronic pulmonary edema Status: Acute (4) HTN (hypertension): Code(s): I10 - Essential (primary) hypertension Status: Acute DS: Summary Hospital Course Hospital Course: This is a 43-year-old male that presented to the hospital on 07/10/2023 due to shortness of breath and chest congestion. He does have a history of hypertension that is untreated. Patient's chest x-ray show cardiomegaly. He was negative for flu, COVID and RSV. Workup in the ED showed?no leukocytosis, no anemia, creatinine 1.1, magnesium 2.4, ALT 74, BNP 4 270, troponin initially 0.034, and viral PCR negative. CXR: Cardiomegaly. Prominent perihilar predominant interstitial and airspace opacities with bat wing configuration most consistent with moderate pulmonary edema. No pleural effusion or pneumothorax. heart rate of 67-173. He is found to be in AFib RVR. There was also concern for pneumonia due to patient's ongoing chest congestion. He was started on antibiotics as well as a diltiazem drip. Cardiology consulted. Cardiology started patient on metoprolol daily. Patient was still in AFib RVR for 2 days while hospitalized. He was eventually transitioned to p.o. diltiazem as well as p.o. metoprolol and his rate was well controlled. He was also started on Eliquis. Education given to the patient regarding his condition. He was discharged home on medications for his AFib as well as antibiotics for pneumonia. Time Spent with Patient Time attestation: Total time spent providing and/or coordinating discharge services: Exam Narrative: GENERAL: Comfortable, no acute distress HENMT: moist mucous membranes EYES: EOM intact b/l NECK: no lymphadenopathy RESPIRATORY: clear to auscultation CARDIO: Irregular rhythm, regular rate GI: soft, nontender, bowel sounds present SKIN: no rashes EXTREMITIES: no edema, redness or tenderness DS: Data Data Completed and Pending Labs on day of discharge: Preliminary micro results at discharge 07/10/23 13:31 Blood Culture - Preliminary Blood 07/10/23 13:46 Blood Culture - Preliminary Blood Discharge Plan Discharge Attending physician on discharge: Dillon Mckeon Consulting providers: Cristofer Gibbs Discharging Clinician: Cora Winslow Patient Disposition: Home, Self-Care Activity: as tolerated Diet: heart healthy Discharge Instructions: Medications: Cardizem 240 mg daily. Metoprolol 150 mg daily. Eliquis 5mg every 12 hours. Anticoagulation Medication: Please take medication as prescribed Do not stop medication before talking to your doctor Bleeding risk is increased while taking medications like aspirin or NSAIDs like ibuprofen or naproxen If you fall or hurt herself or hurt your head, call your doctor right away. You may bleed more easily. Be careful to avoid injury. Discuss this drug with your doctor before undergoing any type of surgery or procedure Discharge disposition: Take medications as prescribed Monitor blood pressures Avoid social areas, you wear a mask when in social settings Encouraged to continue with yearly vaccinations Return to the emergency department if he developed sudden shortness of breath, chest pain, nausea, vomiting, upset stomach or intractable diarrhea Return to the emergency department if you develop fever greater than 100.4 Follow-up with the primary care physician within 1-2 weeks Thank you for choosing [facility] for your healthcare needs Patient Instructions: Antibiotic Form, Metoprolol (By mouth), Apixaban
--- NOTE | 2023-07-13 14:41 | PC.NURSE ---
Patient is upset and raising voice that he has not been discharged. States that he made a deal to be out of here by 1300 today because he has to work tonight or he will be fired. I tried to deescalate the situation but the patient continued to raise his voice and stated I don't know where he works or how their points system works and he will be fired if he doesn't show up tonight. I already notified KHALIF Shpeherd that cardiology has discharged the patient and waiting for discharge orders.
== END 2023-07-13 15:09 | disposition home or self-care (01) | DRG 308 ==
LOC: ANHED 11:59 → ANHIMU 15:52
PROVIDERS: Admitting Provider Internal Medicine; Emergency Provider Emergency Medicine; Visit Provider Internal Medicine Critical Care Medicine
DX: I48.91 Unspecified atrial fibrillation (principal); J18.9 Pneumonia, unspecified organism; Z68.42 Body mass index [BMI] 45.0-49.9, adult; J81.1 Chronic pulmonary edema; I10 Essential (primary) hypertension; E66.01 Morbid (severe) obesity due to excess calories; F12.90 Cannabis use, unspecified, uncomplicated; Z20.822 Contact with and (suspected) exposure to COVID-19
CPT/HCPCS: 36415; 71045; 80048; 80053; 81003; 83605; 83690; 83735; 83880; 84484; 85025; 85027; 85610; 85730; 87040; 87637; 93005; 94762; 96361; 96365; 96366; 96367; 96375; 99213; 99285; A9270; C8929; G0378; G0463; J0456; J0696; J1940; J7030; J7120; Q9957

== ENCOUNTER 2023-09-06 03:12 | Day surgery (SDC) | payer OTHER, SELFPAY ==
[2023-09-03 15:32] VITALS: BMI 46.5
[2023-09-06 10:25] VITALS: BP 173/134; PULSE 140; RESP 12; TEMP 37; O2SAT 95
[2023-09-06 10:58] LABS: Anion Gap 7 mmol/L (4-12); Blood Urea Nitrogen 15 mg/dL (9-20); Calcium 8.8 mg/dL (8.4-10.2); Carbon Dioxide 25 mmol/L (22-30); Chloride 105 mmol/L (98-107); Estimated CRCL calculation 148 ml/min; Estimated Glomerular Filt Rate > 60; Glucose 129 mg/dL (65-110); Potassium 3.4 mmol/L (3.4-5.0); Sodium 137 mmol/L (137-145)
--- NOTE | 2023-09-06 12:03 | WPDANESEPPF ---
Anes - Initial Pre Proc Eval Procedure: Operation Date: 09/06/23 12:00 Proposed Procedures p Electrical Cardioversion - Cristofer Gibbs MD Date/Time: 09/06/23 12:03 Surgeon: Cristofer Gibbs MD Pre Op Diagnosis: a-fib Patient Data Age: 43 Gender: M Height: 1.75 m Weight: 143 kg Last Vital Signs Temp 98.6 F 09/06/23 10:25 Pulse 140 H 09/06/23 10:25 Resp 12 09/06/23 10:25 BP 173/134 H 09/06/23 10:25 Pulse Ox 95 09/06/23 10:25 O2 Del Method Room Air 09/06/23 10:25 Allergies Allergy/AdvReac Type Severity Reaction Status Date / Time No Known Allergies Allergy Verified 09/06/23 10:19 Home Medications Medication Instructions Recorded Confirmed Type apixaban 5 mg tablet (Eliquis) 5 mg PO Q12HR #60 tabs 07/13/23 09/03/23 Rx diltiazem HCl 240 mg 240 mg PO QAM #30 caps 07/13/23 09/03/23 Rx capsule,extended release 24 hr, controlled metoprolol succinate 50 mg 150 mg PO QAM #30 tabs 07/13/23 09/03/23 Rx tablet,extended release 24 hr Laboratory Tests 09/06/23 10:18 Sodium 137 mmol/L (137-145) Potassium 3.4 mmol/L (3.4-5.0) Chloride 105 mmol/L (98-107) Carbon Dioxide 25 mmol/L (22-30) Anion Gap 7 mmol/L (4-12) BUN 15 mg/dL (9-20) Creatinine 0.80 mg/dL (0.7-1.3) Estim Creat Clear Calc 148 ml/min Estimated GFR > 60 (59 - ) Glucose 129 H mg/dL (65-110) Calcium 8.8 mg/dL (8.4-10.2) Magnesium 2.0 mg/dL (1.6-2.3) Patient hx anesthesia problems: none Family hx anesthesia problems: none Results Review: All pre-operative results and documents have been reviewed as part of the pre-operative evaluation. [facility] Past Medical History Medical History HTN (hypertension) Social History Social History Smoking packs per day: 1 Smoking cigarettes per day: 20.0 Years smoked: 5 Smoking pack-years: 5.00 Smoking status: Former smoker Tobacco type: cigarettes Second hand tobacco smoke exposure: Yes Smoking end date: 05/24/01 Alcohol intake: current Drinks per week: 4 Alcohol use details: mixed drinks Substance use: current Substance use type: marijuana Other substance usage details: 2 bowls/day Last use: today Do You Feel Safe in your Home?: Yes Lack of Transportation: No Lack of Food: Never True Current Housing: I Have Housing Concerned About Future Housing: No Difficulty Paying Gas/Electric Bills: No Difficulty Paying for Meds: No Currently Unemployed: No Education: Don't Know Difficulty w/ Childcare or Family Care: No Living arrangements: other Additional living arrangements comments: lives w/ hans, Yumiko Fisher. Spiritual care concerns: No Anes - Eval Final PreProcedure Day of Procedure 09/06/23 12:03 Patient weight: morbidly obese Heart: irregular rhythm Lungs: clear to auscultation Airway: Mallampati scale class II Neurological: alert and oriented Last oral intake: >/= 8 hours ASA classification: III Emergent: no Anesthetic plan: proceed Anesthesia type and monitoring: general GIVS and standard monitoring Results Review: All pre-operative results and documents have been reviewed as part of the pre-operative evaluation. KARTHIKEYAN, sleep study pending. Informed Consent: The patient's anesthetic plan and its attendant risks and benefits were discussed with the patient/family/POA. Questions were solicited and answers provided to the satisfaction of the patient/family/POA.
--- NOTE | 2023-09-06 12:15 | ECG_ITS ---
SEE SCANNED COPY FOR CONFIRMED REPORT MTDD
--- NOTE | 2023-09-06 12:31 | P.PCNCC_ITS ---
Cardiac Cath Procedure Note Date of procedure:: 09/06/23 Performing physician:: Cristofer Gibbs MD Indication:: persistent atrial fibrillation Brief clinical history:: this is a 43-year-old man with a history of morbid obesity and sleep apnea who was found to be in atrial fibrillation and admitted to the hospital recently. He has now been rate controlled and anticoagulated for more than a month and plans to restore sinus rhythm electrically were arrange for this morning. Because of morbid obesity and sleep apnea anesthesia was requested to provide sedation for this procedure Procedure Procedure performed:: DC cardioversion Sedation/Medication given:: see separately dictated anesthesia no Estimated blood loss:: no blood loss Procedure note:: patient was brought to the cardiac lab PACU area where he was in the postabsorptive state had defibrillator patches in the AP position. IV access was established and anesthesia service provided sedation. When the patient was well sedated he received 1 countershock at 200 joules in a synchronized fashion which restored sinus rhythm/ sinus tachycardia Findings:: as above Conclusion:: successful uncomplicated DC cardioversion of atrial fibrillation using 200 joules x1 shock restoring sinus Cristofer Gibbs MD [facility]
[2023-09-06 12:45] VITALS: BP 123/86; PULSE 86; RESP 14; O2SAT 96
[2023-09-06 12:50] VITALS: PULSE 86
[2023-09-06] MEDS: SOTALOL HCL 80 MG TABLET PO (12:50)
[2023-09-06 13:00] VITALS: BP 135/98; PULSE 80; RESP 14; O2SAT 96
[2023-09-06 13:15] VITALS: BP 133/97; PULSE 71; RESP 17; O2SAT 96
[2023-09-06 13:30] VITALS: BP 132/92; PULSE 70; RESP 12; O2SAT 97
== END 2023-09-06 13:40 | disposition home or self-care (01) ==
PROVIDERS: Visit Provider Specialist
PROC: 5A2204Z Restoration of Cardiac Rhythm, Single (ICD-10-PCS; principal; 2023-09-06 12:00)
DX: I48.0 Paroxysmal atrial fibrillation (principal); I10 Essential (primary) hypertension; D68.69 Other thrombophilia; F12.90 Cannabis use, unspecified, uncomplicated; G47.30 Sleep apnea, unspecified; E66.01 Morbid (severe) obesity due to excess calories; Z68.42 Body mass index [BMI] 45.0-49.9, adult; Z79.01 Long term (current) use of anticoagulants; Z87.891 Personal history of nicotine dependence
CPT/HCPCS: 36415; 80048; 83735; 92960; A9270; J7030